=== PATIENT | male | born 1995 | race Two or more races ===

== ENCOUNTER 2024-08-24 | Emergency (ER) | payer SELFPAY ==
[2024-08-24 00:18] VITALS: BP 133/84; PULSE 62; RESP 16; TEMP 37.2; O2SAT 98; BMI 34.0
--- NOTE | 2024-08-24 00:55 | PD.EDMALE ---
ED Male Genitalurinary RME/HPI General Chief complaint: Abdominal Pain Stated complaint: PAIN WHILE HAVING A BOWEL MOVEMENT Time Seen by Provider: 08/24/24 00:34 Arrival date/time: 08/24/24 00:00 29M with no significant PMH presents to ED with several days of rectal pain with BM and some bright red blood in stool. Limitations: no limitations Related Data Previous Rx's ?Medication ?Instructions ?Recorded ibuprofen 800 mg tablet 800 mg PO TID #30 tabs 06/19/18 hydrocortisone 2.5 % topical cream 1 applic MT QDAY PRN hemorrhoids 08/24/24 with perineal applicator #30 grams (Anusol-HC) lidocaine 5 % topical ointment 1 applic topical BID PRN pain #30 08/24/24 grams Allergies Allergy/AdvReac Type Severity Reaction Status Date / Time No Known Allergies Allergy Verified 06/19/18 10:02 Review of Systems Review of Systems Systems Reviewed: All systems reviewed, normal except as documented Constitutional Constitutional: Reports system reviewed and no additional complaints, except as documented, Denies fever(s) and Denies headache(s) ENT Ears, Nose, Mouth, and Throat: Denies disequilibrium and Denies headache(s) Cardiovascular Cardiovascular: Reports system reviewed and no additional complaints, except as documented, Denies chest pain and Denies dyspnea Respiratory Respiratory: Reports system reviewed and no additional complaints, except as documented, Denies cough and Denies dyspnea Gastrointestinal Gastrointestinal: Reports system reviewed and no additional complaints, except as documented, Reports as per HPI, Denies abdominal pain, Reports hematochezia, Denies nausea and Denies vomiting Neurologic Neurologic: Reports system reviewed and no additional complaints, except as documented, Denies confusion, Denies disequilibrium and Denies headache(s) Psychiatric Psychiatric: Denies confusion Past Medical History Social History SMOKING STATUS: Never smoker ED Exam General Limitations: Present no limitations General appearance: Present alert and in no apparent distress Head Head exam: Present atraumatic Eye Eye exam: Present normal appearance, PERRL and EOMI ENT ENT exam: Present normal exam, normal oropharynx and mucous membranes moist Neck Neck exam: Present normal inspection, full ROM and trachea midline Chest Chest inspection: Present normal inspection and symmetric chest wall rise Respiratory Respiratory exam: Present normal lung sounds bilaterally Cardiovascular Cardiovascular exam: Present regular rate, normal rhythm and normal heart sounds Abdominal Exam Abdominal exam: Present soft and normal bowel sounds Rectal Exam Rectal exam: Present hemorrhoids Extremities Exam Extremities exam: Present normal inspection and full ROM Back Exam Back exam: Present normal inspection and full ROM Neurological Exam Neurological exam: Present alert, oriented X3 and CN II-XII intact Psychiatric Psychiatric exam: Present normal affect and normal mood Skin Skin exam: Present warm, dry, intact and normal color Course Quality Measures none Vital Signs Vital signs: Vital Signs Temperature 98.9 F 08/24/24 00:18 Pulse Rate 62 08/24/24 00:18 Respiratory Rate 16 08/24/24 00:18 Blood Pressure 133/84 H 08/24/24 00:18 Pulse Oximetry (%) 98 08/24/24 00:18 Oxygen Delivery Method Room Air 08/24/24 00:18 O2 at 98% on RA and WNLs Urogenital - Male MDM Narrative MDM Narrative:: 29M with no significant PMH presents to ED with several days of rectal pain with BM and some bright red blood in stool. Physical exam with paste mixing supervisor reveals internal hemorrhoids. Patient is afebrile, calm, and alert. Meds and vocational counselor given. Patient data External records reviewed:: [facility] previous records Clinical information provided by:: patient Social determinants that could affect healthcare access:: none Patient has the following chronic illnesses:: none How is presenting disease/condition affected by chronic disease/condition?: no chronic disease Evaluation data The following diagnostics were reviewed and interpreted by me:: other (specify) (none) Lab and/or radiology exams considered but not ordered:: not ordered Interpretation Summary: n/a Medications / Prescriptions Medications or Prescriptions considered but not ordered:: not ordered Medication administrations:: n/a Consultations Consultation(s) initiated? (list below): No Diagnosis Urogenital Male Differential Diagnosis: urinary tract infection, priapism, urethritis, epididymitis, genital herpes simplex, prostatitis, acute retention of urine, inguinal hernia and other (hemorrhoids) Most likely diagnosis given after review of the tests above:: hemorrhoids Admission Indicated Admission indicated?: not indicated Admission Request Was there a request for admission?: No Disposition Plan Disposition Plan: Discharge Discharge Attestation Discharge Attestation: The patient and all family members were given an opportunity to ask questions and understood the discharge instructions. Discharge instructions specifically effects, indications for sooner follow up or return to the emergency department, and the expected course of current diagnosis. Patient condition: Stable Discharge Plan Plan Patient Disposition: HOME (Self Care) Discharge Disposition comment: Stable Prescriptions/Referrals Prescriptions/Med Rec: New hydrocortisone [Anusol-HC] 2.5 % cream with perineal applicator 1 applic MT QDAY PRN (Reason: hemorrhoids) Qty: 30 0RF lidocaine 5 % ointment 1 applic topical BID PRN (Reason: pain) Qty: 30 0RF No Action ibuprofen 800 mg tablet 800 mg PO TID Qty: 30 0RF Problem List Clinical Impression: Hemorrhoids Patient/Caregiver Discharge Instructions Education Materials: ED Hemorrhoids Additional Instructions: Please follow-up with PCP within 24-48 hours and return immediately if symptoms worsen. If problem persists, see PCP for possible referral to GI. Use lidocaine cream 15 min prior to wanting to have BM. Print Language: Turkish Stand Alone Forms: Patient Portal Info Letter JAZZ/FLOR Supervising Physician JAZZ/FLOR Supervising Physician: Dr. Flores
== END 2024-08-24 00:45 | disposition home or self-care (01) ==
LOC: SERX 00:48
PROVIDERS: Emergency Provider Emergency Medicine
DX: K64.8 Other hemorrhoids (principal); K92.1 Melena
CPT/HCPCS: 99281